=== PATIENT | female | born 1995 | race Caucasian/White ===

== ENCOUNTER 2017-03-24 02:22 | Emergency (ER) | payer OTHER ==
[~2017-03-24] VITALS: Ht 154.9 cm; Wt 50.9 kg
[~2017-03-24 02:22] MED LIST: PRENAT PO
[2017-03-24 02:31] VITALS: Ht 154.9 cm; Wt 50.9 kg
--- NOTE | 2017-03-24 02:47 | ERA ---
ER Documentation Chief Complaint Date/Time DATE: 03/24/17 TIME: 02:47 Chief Complaint Fainted HPI The patient is a 22-year-old female, presenting to the ER because she [place]ed [place] the club to drinking heavily. She did not remember what happened to her. She is complaining of mild dizziness, headache, abdominal discomfort and vomiting twice, mostly mucus, denies fever, chills, neck pain, chest pain, dyspnea. Sh denies diarrhea constipation she does not smoke, drinks moderately , denies any illicit Past medical past surgical history: None ROS All systems reviewed and are negative except as per history of present illness. Medications Home Meds Active Scripts Ondansetron (Ondansetron Odt) 4 Mg Tab.rapdis, 4 MG PO Q6H Y for NAUSEA AND/OR VOMITING, #10 TAB Prov:PAULO LYNCH MD 03/24/17 Discontinued Reported Medications Multivit/Min/Fol Ac/Iron/Pren* ( S*) 1 Tab Tab, 1 TAB PO, TAB 06/07/14 Allergies Allergies: Coded Allergies: No Known Allergy (Unverified , 03/24/17) PMhx/Soc Hx Alcohol Use: No Hx Substance Use: No Hx Tobacco Use: No Physical Exam Vitals Vital Signs Date Time Temp Pulse Resp B/P Pulse Ox O2 Delivery O2 Flow Rate FiO2 03/24/17 02:31 97.5 115 18 131/66 99 Physical Exam Const: No acute distress. Head: Atraumatic. Eyes: Normal Conjunctiva. ENT: Normal External Ears, Nose and Mouth. Neck: Full range of motion. No meningismus. Resp: Clear to auscultation bilaterally. Cardio: Regular tachycardic Abd: Soft, non distended, normal bowel sounds, non tender. Skin: No petechiae or rashes. Back: No midline or flank tenderness. Ext: No cyanosis, or edema. Neur: Awake and alert. No focal deficit Psych: Normal Mood and Affect. Result Diagram: 03/24/17 0320 03/24/17 0320 Results 24 hrs Laboratory Tests Test 03/24/17 03:20 03/24/17 03:34 White Blood Count 8.410^3/ul Red Blood Count 5.1110^6/ul Hemoglobin 14.9g/dl Hematocrit 43.1% Mean Corpuscular Volume 84.3fl Mean Corpuscular Hemoglobin 29.2pg Mean Corpuscular Hemoglobin Concent 34.6g/dl Red Cell Distribution Width 12.0% Platelet Count 74363^3/UL Mean Platelet Volume 10.3fl Neutrophils % 82.3% Lymphocytes % 13.3% Monocytes % 3.9% Eosinophils % 0.1% Basophils % 0.2% Nucleated Red Blood Cells % 0.0/100WBC Neutrophils # 6.910^3/ul Lymphocytes # 1.110^3/ul Monocytes # 0.310^3/ul Eosinophils # 0.010^3/ul Basophils # 0.010^3/ul Nucleated Red Blood Cells # 0.010^3/ul Sodium Level 151mmol/L Potassium Level 3.4mmol/L Chloride Level 106mmol/L Carbon Dioxide Level 22mmol/L Anion Gap 26 Blood Urea Nitrogen 5mg/dl Creatinine 0.49mg/dl Glucose Level 105mg/dl Calcium Level 9.3mg/dl Total Bilirubin 0.2mg/dl Direct Bilirubin 0.00mg/dl Indirect Bilirubin 0.2mg/dl Aspartate Amino Transf (AST/SGOT) 21IU/L Alanine Aminotransferase (ALT/SGPT) 28IU/L Alkaline Phosphatase 72IU/L Total Protein 8.5g/dl Albumin 5.1g/dl Globulin 3.40g/dl Albumin/Globulin Ratio 1.50 Lipase 65U/L Bedside Glucose 105mg/dL Current Medications Medications (Trade) Dose Ordered Sig/Delmi Route PRN Reason Start Time Stop Time Status Last Admin Dose Admin Sodium Chloride (NS) 1,000 ml @ 1,000 mls/hr Q1H STAT IV 03/24/17 02:52 03/24/17 03:51 DC 03/24/17 04:02 Pantoprazole (Protonix Iv) 40 mg ONCE ONCE IV 03/24/17 03:00 03/24/17 03:01 DC 03/24/17 03:00 Ondansetron HCl (Zofran Inj) 4 mg ONCE STAT IV 03/24/17 02:52 03/24/17 02:55 DC 03/24/17 02:52 Potassium Chloride (Klor-Con 20) 20 meq ONCE ONCE PO 03/24/17 04:47 03/24/17 04:48 DC 03/24/17 04:53 Procedures/[address], [place] [address] Radiology Main Line: [phone] DIAGNOSTIC IMAGING REPORT Patient: DARCY BRITO : 1995 Age: 22 Sex: F MR #: [id number] DOS: 03/24/17251 Ordering MD: PAULO LYNCH MD Location: E/R Room/Bed: PROCEDURE: XR Chest. CLINICAL INDICATION: Syncope TECHNIQUE: Single frontal view of the chest was obtained COMPARISON: None FINDINGS: The heart and mediastinum are within normal limits. The lungs are clear. There is no pleural effusion or pneumothorax. IMPRESSION: No acute disease. RPTAT: HJES .Will Montoya MD, Date Time Electronically viewed and signed by .Will Montoya MD, MD on 03/24/2017 04:38 .S/ CC: PAULO LYNCH MD [place] [address] Radiology Main Line: [phone] DIAGNOSTIC IMAGING REPORT Patient: DARCY BRITO : 1995 Age: 22 Sex: F MR #: [id number] DOS: 03/24/17251 Ordering MD: PAULO LYNCH MD Location: E/R Room/Bed: PROCEDURE: CT brain without contrast. CLINICAL INDICATION: Syncope. TECHNIQUE: CT scan of the brain was performed on a multi-detector high- resolution CT scanner. Contiguous axial images were obtained from the skull base to the vertex without intravenous contrast. Coronal and sagittal reformatted images were also obtained. Images were reviewed on the PACS workstation. One or more of the following dose reduction techniques were used: - Automated exposure control. - Adjustment of the mA and/or kV according to patient size. - Use of iterative reconstruction technique. Exam CTD/vol = 45.01 mGy. Total exam DLP = 720.23 mGy-cm. COMPARISON: None. FINDINGS: The ventricles and cortical sulci are within normal limits for patient's age. There are no areas of abnormal attenuation within the brain parenchyma. There is no mass effect or midline shift. There is no intracranial hemorrhage or abnormal extra-axial collection. The calvarium is intact. There is no evidence of fracture. Visualized paranasal sinuses and mastoid air cells are clear. IMPRESSION: No acute intracranial abnormality identified. .Jose Cassidy MD, Date Time Electronically viewed and signed by .Jose Cassidy MD, MD on 03/24/2017 04:57 .T/ CC: PAULO LYNCH MD EKG: Read by emergency physician Rate/Rhythm: Normal Sinus Rhythm 90 beats/min QRS, ST, T-waves: No ST elevation, no T inversion, incomplete right bundle branch block Impression: Abnormal EKG MEDICAL MAKING DECISION: The patient is a 22-year-old female, presenting with acute syncope most likely due to alcohol intoxication, acute hypokalemia, acute dehydration. She was treated with 1 L normal saline for acute dehydration, potassium chloride 20 mEq p.o. for acute hypokalemia, Zofran 4 mg IV for nausea , Protonix 40 mg IV for epigastric discomfort with good response The differential diagnoses considered include but are not limited to bradyarrhythmia, tachyarrhythmias, aortic outflow obstruction, neurogenic including subarachnoid hemorrhage, orthostatic hypotension and all of its causes , hypoglycemia, dysautonomia, medications. Departure Diagnosis: Primary Impression: Syncope Additional Impressions: Alcohol abuse Hypokalemia Dehydration Condition: Good Comments She was discharged with Protonix and Zofran ODT I discussed the findings with the patient. I advised the patient to follow-up with the primary physician in about 1-2 days, sooner if needed and return if any concern. The patient's blood pressure was elevated (>120/80) but appears stable without evidence of hypertension emergency or urgency. The patient was counseled about the risks of hypertension and urged to pursue outpatient monitoring and therapy within a week with their primary care physician. PAULO LYNCH MD Mar 24, 2017 02:47
[2017-03-24] MEDS ORDERED: ONDANSETRON 4 MG INJ IV STA (02:52)
[2017-03-24] MEDS ORDERED: SOD CHLORIDE 0.9% 1,000 ML IV STA (02:52)
[2017-03-24] MEDS ORDERED: PANTOPRAZOLE 40 MG INJ IV ONE (03:00)
[2017-03-24 04:14] LABS: BASOPHILS % 0.2 % (0.0-2.0); EOSINOPHILS % 0.1 % (0.0-7.0); HEMATOCRIT 43.1 % (37.0-47.0); HEMOGLOBIN 14.9 g/dl (12.0-16.0); LYMPHOCYTES # 1.1 10^3/ul (0.8-2.9); LYMPHOCYTES % 13.3 % (15.0-51.0); MEAN CORPUSCULAR HEMOGLOBIN 29.2 pg (29.0-33.0); MEAN CORPUSCULAR HGB CONC 34.6 g/dl (32.0-37.0); MEAN CORPUSCULAR VOLUME 84.3 fl (82.0-101.0); MEAN PLATELET VOLUME 10.3 fl (7.4-10.4); MONOCYTE # 0.3 10^3/ul (0.3-0.9); MONOCYTES % 3.9 % (0.0-11.0); NEUTROPHIL # 6.9 10^3/ul (1.6-7.5); NEUTROPHILS % 82.3 % (39.0-77.0); PLATELET COUNT 328 10^3/UL (140-415); RED BLOOD COUNT 5.11 10^6/ul (4.20-5.40); WHITE BLOOD COUNT 8.4 10^3/ul (4.8-10.8)
[2017-03-24 04:33] LABS: ALBUMIN 5.1 g/dl (3.3-4.9); ALBUMIN/GLOBULIN RATIO 1.5; BILIRUBIN,INDIRECT 0.2 mg/dl (0-1.1); BILIRUBIN,TOTAL 0.2 mg/dl (0.2-1.3); CALCIUM 9.3 mg/dl (8.4-10.2); CREATININE 0.49 mg/dl (0.44-1.00); POTASSIUM 3.4 mmol/L (3.5-5.1); TOTAL PROTEIN 8.5 g/dl (6.1-8.1)
--- NOTE | 2017-03-24 04:39 | RADRPT ---
PROCEDURE: XR Chest. CLINICAL INDICATION: Syncope TECHNIQUE: Single frontal view of the chest was obtained COMPARISON: None FINDINGS: The heart and mediastinum are within normal limits. The lungs are clear. There is no pleural effusion or pneumothorax. IMPRESSION: No acute disease. RPTAT: HJES .Will Montoya MD, Date Time Electronically viewed and signed by .Will Montoya MD, on 03/24/2017 04:38 .S/
[2017-03-24] MEDS ORDERED: POTASSIUM CHLORIDE (SR) 20 MEQ TAB PO ONE (04:47)
--- NOTE | 2017-03-24 04:58 | RADRPT ---
PROCEDURE: CT brain without contrast. CLINICAL INDICATION: Syncope. TECHNIQUE: CT scan of the brain was performed on a multi-detector high-resolution CT scanner. Co ntiguous axial images were obtained from the skull base to the vertex without intravenous contrast. Coronal and sagittal reformatted images were also obtained. Images were reviewed on the PACS works tation. One or more of the following dose reduction techniques were used: - Automated exposure control. - Adjustment of the mA and/or kV according to patient size. - Use of iterative reconstruction technique. Exam CTD/vol = 45.01 mGy. Total exam DLP = 720.23 mGy-cm. COMPARISON: None. FINDINGS: The ventricles and cortical sulci are within normal limits for patient's age. There are no areas of abnormal attenuation within the brain parenchyma. There is no mass effect or midline shift. There is no intracranial hemorrhage or abnormal extra-axial collection. The calvarium is intact. There is no evidence of fracture. Visualized paranasal sinuses and mastoid air cells are clear. IMPRESSION: No acute intracranial abnormality identified. .Jose Cassidy MD, Date Time Electronically viewed and signed by .Jose Cassidy MD, on 03/24/2017 04:57 .T/
[2017-03-24] MEDS ORDERED: ONDA4TAB14 PO (05:11)
[2017-03-24 05:47] VITALS: BP 116/88; PULSE 88; RESP 18; TEMP 98.2
== END 2017-03-24 05:49 | disposition home or self-care (01) ==
LOC: E/R 02:22
DX: R55 Syncope and collapse (principal); E87.6 Hypokalemia; E86.0 Dehydration; R11.10 Vomiting, unspecified; F10.10 Alcohol abuse, uncomplicated
CPT/HCPCS: 36415; 70450; 71010; 80053; 82962; 83690; 85025; 93005; 96361; 96374; 96375; C9113; J2405; J7030; Z7502; Z7610

== ENCOUNTER 2017-11-18 17:22 | Emergency (ER) | END 2017-11-18 20:43 | disposition home or self-care (01) ==